=== PATIENT | male | born 1955 | race Caucasian/White ===

== ENCOUNTER → 2020-08-10 13:26 | Outpatient (CLI) | payer OTHER, SELFPAY ==
[2020-08-10] MEDS: COVID-19 VACC #1, MRNA(MOD) 100 MCG/0.5 ML VIAL IM (13:35)
== END ==
PROVIDERS: Visit Provider Internal Medicine
DX: Z23 Encounter for immunization (principal)
CPT/HCPCS: 0011A; 91301

== ENCOUNTER → 2020-09-07 13:05 | Outpatient (CLI) | payer OTHER, SELFPAY ==
[2020-09-07] MEDS: COVID-19 VACC #2, MRNA(MOD) 100 MCG/0.5 ML VIAL IM (13:09)
== END ==
PROVIDERS: Visit Provider Internal Medicine
DX: Z23 Encounter for immunization (principal)
CPT/HCPCS: 0012A; 91301